=== PATIENT | female | born 1965 | race Caucasian/White ===

== ENCOUNTER → 2017-11-07 | Outpatient (CLI) | payer MEDICAID ==
--- NOTE | 2017-11-12 09:50 | RSPPFT ---
DATE OF PROCEDURE: 11/07/17 COMMENTS: Spirometry with FVC of 2.1, FEV1 of 1.7, FEV1/FVC ratio at 82%. TLC is 65%. Diffusion capacity is 68% and normal when corrected for alveolar volume. IMPRESSION: 1. Mild airways restriction. 2. No evidence of airways obstruction. 3. Positive response to acutely inhaled bronchodilator. 4. Normal diffusion capacity.
== END ==
LOC: HRSP 10:19
PROVIDERS: ATTEND Internal Medicine Sleep Medicine
DX: R06.89 Other abnormalities of breathing (principal); R91.1 Solitary pulmonary nodule
CPT/HCPCS: 94060; 94726; 94729